=== PATIENT | female | born 1980 | race African-American/Black ===

== ENCOUNTER 2017-01-08 22:41 | Emergency (ER) | payer MEDICARE, MEDICAID ==
[~2017-01-08] VITALS: Ht 167.6 cm; Wt 114.0 kg
[~2017-01-08 22:41] MED LIST: ARIP2TAB9 PO
[2017-01-09 00:59] LABS: CLARITY URINE CLOUDY (CLEAR); COLOR URINE YELLOW (YELLOW); GLUCOSE URINE NEGATIVE (NEGATIVE); KETONES URINE NEGATIVE (NEGATIVE); LEUKOCYTE ESTERASE URINE NEGATIVE (NEGATIVE); NITRITE URINE NEGATIVE (NEGATIVE); OCCULT BLOOD URINE NEGATIVE (NEGATIVE); PH URINE 6.5 (4.5-8.0); PROTEIN URINE NEGATIVE (NEGATIVE); SPECIFIC GRAVITY URINE 1.031 (1.005-1.030)
[2017-01-09] MEDS ORDERED: DIPHENHYDRAMINE 50MG CAPSULE PO ONE (01:00)
[2017-01-09] MEDS ORDERED: LORAZEPAM 1MG TABLET PO ONE (01:00)
[2017-01-09 01:04] LABS: BASOPHILS % 1.2 % (0.0-2.0); EOSINOPHILS % 3.4 % (0.0-5.0); HEMATOCRIT. 37.6 % (36.0-48.0); LYMPHOCYTES % 35.6 % (20.0-50.0); MEAN CORPUSCULAR VOLUME 84.3 fL (81.0-99.0); MEAN PLATELET VOLUME 7.9 fl (7.4-10.4); MONOCYTES % 7.3 % (2.0-8.0); NEUTROPHILS % 52.5 % (40.0-76.0); PLATELET 276 x1000/uL (130-400); RED BLOOD CELL COUNT 4.45 mill/uL (4.2-5.4); RED CELL DISTRIBUTION WIDTH 14.7 % (11.6-14.6); WHITE BLOOD COUNT 6.6 x1000/uL (4.5-11.0)
[2017-01-09 01:08] LABS: CHLORIDE 108 mEq/L (98-107); INDEX HEMOLYSI 1 (1-3); INDEX ICTERIC 1 (1-4); INDEX LIPEMIC 1 (1-3)
[2017-01-09 01:14] LABS: *AMPHETAMINES SCREEN URINE NEGATIVE (NEGATIVE); *BARBITURATES SCREEN URINE NEGATIVE (NEGATIVE); *BENZODIAZEPINES SCREEN URINE NEGATIVE (NEGATIVE); *COCAINE SCREEN URINE NEGATIVE (NEGATIVE); CANNABINOID URINE SCREEN NEGATIVE (NEGATIVE); ECSTASY MDMA SCREEN URINE NEGATIVE (NEGATIVE); METHADONE URINE SCREEN NEGATIVE (NEGATIVE); OPIATES URINE SCREEN NEGATIVE (NEGATIVE); PHENCYCLIDINE URINE SCREEN NEGATIVE (NEGATIVE)
[2017-01-09 01:18] LABS: ACETAMINOPHEN < 2 ug/mL (10-30); ALANINE AMINOTRANSFERASE 23 IU/L (13-61); ALBUMIN 3.3 g/dL (3.4-5.0); ANION GAP 13; CALCIUM 8.5 mg/dL (8.5-10.1); CARBON DIOXIDE 26 mEq/L (21-32); ETHANOL BLOOD < 10 mg/dL; UREA NITROGEN BLOOD 13 mg/dL (7-21); eGFR > 60 mL/min (>60)
[2017-01-09 02:04] LABS: SQUAMOUS EPITHELIAL CELL URINE 2+ /lpf (RARE/1+); WBC URINE 0-2 /hpf (0-2)
[2017-01-09 02:05] LABS: RBC URINE 0-2 /hpf (0-2)
[2017-01-09 02:06] LABS: BACTERIA URINE TRACE
[2017-01-09 11:44] VITALS: BP 128/77
[2017-01-09] MEDS ORDERED: LORAZEPAM 2MG/ML CPJ IM ONE (12:45)
== END 2017-01-09 14:02 | disposition home or self-care (01) ==
LOC: ER 22:58
DX: F31.9 Bipolar disorder, unspecified (principal); R45.851 Suicidal ideations; F41.9 Anxiety disorder, unspecified; L97.929 Non-pressure chronic ulcer of unspecified part of left lower leg with unspecified severity
CPT/HCPCS: 36415; 80053; 80305; 80307; 80329; 81001; 81025; 85025; 99285; G0482; J2060; Q0163

== ENCOUNTER 2017-03-08 02:19 | Emergency (ER) | payer MEDICARE, MEDICAID ==
[~2017-03-08] VITALS: Ht 167.6 cm; Wt 107.0 kg
[2017-03-08 06:51] LABS: BASOPHILS % 0.7 % (0.0-2.0); EOSINOPHILS % 1.8 % (0.0-5.0); HEMOGLOBIN. 12.9 g/dL (12.0-16.0); LYMPHOCYTES % 24.7 % (20.0-50.0); MEAN CORPUSCULAR HGB CONC 32.4 g/dL (31.0-37.0); MEAN CORPUSCULAR VOLUME 83.3 fL (81.0-99.0); MONOCYTES % 6.7 % (2.0-8.0); NEUTROPHILS % 66.1 % (40.0-76.0); PLATELET 291 x1000/uL (130-400); RED CELL DISTRIBUTION WIDTH 14.2 % (11.6-14.6); WHITE BLOOD COUNT 7.9 x1000/uL (4.5-11.0)
[2017-03-08 06:54] LABS: CHLORIDE 109 mEq/L (98-107); INDEX HEMOLYSI 1 (1-3); INDEX ICTERIC 1 (1-4); INDEX LIPEMIC 1 (1-3)
[2017-03-08 07:03] LABS: ACETAMINOPHEN < 2 ug/mL (10-30); ALANINE AMINOTRANSFERASE 24 IU/L (13-61); ALBUMIN 3.3 g/dL (3.4-5.0); ANION GAP 12; CALCIUM 8.3 mg/dL (8.5-10.1); CARBON DIOXIDE 25 mEq/L (21-32); ETHANOL BLOOD < 10 mg/dL; UREA NITROGEN BLOOD 9 mg/dL (7-21); eGFR > 60 mL/min (>60)
[2017-03-08 10:17] LABS: CLARITY URINE TURBID (CLEAR); COLOR URINE DARK YELLOW (YELLOW); GLUCOSE URINE NEGATIVE (NEGATIVE); KETONES URINE TRACE (NEGATIVE); LEUKOCYTE ESTERASE URINE 2+ (NEGATIVE); NITRITE URINE NEGATIVE (NEGATIVE); OCCULT BLOOD URINE NEGATIVE (NEGATIVE); PH URINE 5.5 (4.5-8.0); PROTEIN URINE TRACE (NEGATIVE); SPECIFIC GRAVITY URINE 1.036 (1.005-1.030); UROBILINOGEN URINE 0.2 E.U./dL (0.2-1.0)
[2017-03-08 10:32] LABS: RBC URINE NONE SEEN /hpf (0-2); WBC URINE 0-2 /hpf (0-2)
[2017-03-08 10:33] LABS: AMORPHOUS SEDIMENT URINE 3+ /lpf; BACTERIA URINE 1+; CALCIUM OXALATE CRYSTALS URINE 2+ /lpf; SQUAMOUS EPITHELIAL CELL URINE RARE /lpf (RARE/1+)
[2017-03-08 10:43] LABS: *AMPHETAMINES SCREEN URINE NEGATIVE (NEGATIVE); *BARBITURATES SCREEN URINE NEGATIVE (NEGATIVE); *BENZODIAZEPINES SCREEN URINE NEGATIVE (NEGATIVE); *COCAINE SCREEN URINE NEGATIVE (NEGATIVE); ECSTASY MDMA SCREEN URINE NEGATIVE (NEGATIVE); METHADONE URINE SCREEN NEGATIVE (NEGATIVE); OPIATES URINE SCREEN NEGATIVE (NEGATIVE); PHENCYCLIDINE URINE SCREEN NEGATIVE (NEGATIVE)
[2017-03-08 10:59] LABS: CANNABINOID URINE SCREEN PRESUMTIVE POSITIVE (NEGATIVE)
[2017-03-08] MEDS ORDERED: ARIPIPRAZOLE 10MG TABLET PO ONE (12:15)
[2017-03-08 13:23] VITALS: BP 128/76
[2017-03-08] MEDS ORDERED: LORAZEPAM 1MG TABLET PO ONE (14:15)
== END 2017-03-08 17:56 | disposition home or self-care (01) ==
LOC: ER 02:22
DX: F25.0 Schizoaffective disorder, bipolar type (principal); N39.0 Urinary tract infection, site not specified; R03.0 Elevated blood-pressure reading, without diagnosis of hypertension; Z59.0 Homelessness
CPT/HCPCS: 36415; 80053; 80305; 80307; 80329; 81001; 81025; 85025; 99284; G0482

== ENCOUNTER 2017-10-12 00:40 | Emergency (ER) | payer MEDICARE, MEDICAID ==
[~2017-10-12] VITALS: Ht 167.6 cm; Wt 113.0 kg
[~2017-10-12 00:40] MED LIST changes: +ARIP2TAB3 PO; -ARIP2TAB9 PO
[2017-10-12 07:33] LABS: CLARITY URINE CLOUDY (CLEAR); COLOR URINE YELLOW (YELLOW); KETONES URINE NEGATIVE (NEGATIVE); LEUKOCYTE ESTERASE URINE 1+ (NEGATIVE); NITRITE URINE NEGATIVE (NEGATIVE); OCCULT BLOOD URINE NEGATIVE (NEGATIVE); PH URINE 5.5 (4.5-8.0); PROTEIN URINE TRACE (NEGATIVE); UROBILINOGEN URINE 0.2 E.U./dL (0.2-1.0)
[2017-10-12 07:34] LABS: CARBON DIOXIDE 30 mEq/L (21-32); CHLORIDE 107 mEq/L (98-107); ETHANOL BLOOD < 10 mg/dL
[2017-10-12 07:36] LABS: BASOPHILS % 0.9 % (0.0-2.0); EOSINOPHILS % 4.6 % (0.0-5.0); HEMATOCRIT. 40.9 % (36.0-48.0); LYMPHOCYTES % 47.6 % (20.0-50.0); MEAN CORPUSCULAR VOLUME 84.7 fL (81.0-99.0); MEAN PLATELET VOLUME 8.3 fl (7.4-10.4); MONOCYTES % 8.1 % (2.0-8.0); NEUTROPHILS % 38.8 % (40.0-76.0); PLATELET 269 x1000/uL (130-400); RED BLOOD CELL COUNT 4.83 mill/uL (4.2-5.4); RED CELL DISTRIBUTION WIDTH 13.3 % (11.6-14.6)
[2017-10-12 08:10] LABS: *AMPHETAMINES SCREEN URINE NEGATIVE (NEGATIVE); *BARBITURATES SCREEN URINE NEGATIVE (NEGATIVE); *COCAINE SCREEN URINE NEGATIVE (NEGATIVE); METHADONE URINE SCREEN NEGATIVE (NEGATIVE); OPIATES URINE SCREEN NEGATIVE (NEGATIVE); PHENCYCLIDINE URINE SCREEN NEGATIVE (NEGATIVE)
[2017-10-12 08:15] LABS: *BENZODIAZEPINES SCREEN URINE PRESUMTIVE POSITIVE (NEGATIVE); CANNABINOID URINE SCREEN PRESUMTIVE POSITIVE (NEGATIVE)
[2017-10-12 13:07] VITALS: BP 138/82
== END 2017-10-12 13:57 | disposition home or self-care (01) ==
LOC: ER 00:40
DX: S00.83XA Contusion of other part of head, initial encounter (principal); F25.9 Schizoaffective disorder, unspecified; F31.9 Bipolar disorder, unspecified; R44.0 Auditory hallucinations; F17.210 Nicotine dependence, cigarettes, uncomplicated; Z59.0 Homelessness; F12.10 Cannabis abuse, uncomplicated; W01.0XXA Fall on same level from slipping, tripping and stumbling without subsequent striking against object, initial encounter; Y93.89 Activity, other specified; Y92.488 Other paved roadways as the place of occurrence of the external cause
CPT/HCPCS: 36415; 80053; 80305; 80307; 80329; 81001; 81025; 85025; 99284; G0482

== ENCOUNTER 2018-05-22 18:37 | Emergency (ER) | payer MEDICARE, MEDICAID ==
[~2018-05-22] VITALS: Ht 165.1 cm; Wt 114.0 kg
[2018-05-22 22:56] LABS: HEMATOCRIT. 34.3 % (36.0-48.0); HEMOGLOBIN. 11.3 g/dL (12.0-16.0); MEAN CORPUSCULAR HEMOGLOBIN 26.7 pg (28.0-32.0); MEAN CORPUSCULAR VOLUME 81.4 fL (81.0-99.0); MEAN PLATELET VOLUME 8.2 fl (7.4-10.4); PLATELET 418 x1000/uL (130-400); RED BLOOD CELL COUNT 4.21 mill/uL (4.2-5.4); RED CELL DISTRIBUTION WIDTH 13.6 % (11.6-14.6)
[2018-05-22 22:59] LABS: CHLORIDE 106 mEq/L (98-107)
[2018-05-22 23:04] LABS: ETHANOL BLOOD < 10 mg/dL
[2018-05-22 23:20] LABS: PLATELET ESTIMATE INCREASED
[2018-05-23 01:18] LABS: CLARITY URINE TURBID (CLEAR); COLOR URINE DARK YELLOW (YELLOW); KETONES URINE TRACE (NEGATIVE); LEUKOCYTE ESTERASE URINE 2+ (NEGATIVE); NITRITE URINE NEGATIVE (NEGATIVE); OCCULT BLOOD URINE NEGATIVE (NEGATIVE); PROTEIN URINE 1+ (NEGATIVE); SPECIFIC GRAVITY URINE 1.027 (1.005-1.030)
[2018-05-23] MEDS ORDERED: NITROFURANTOIN 100MG M/M CAPSULE PO ONE (01:30)
[2018-05-23 01:59] LABS: *AMPHETAMINES SCREEN URINE NEGATIVE (NEGATIVE); *BARBITURATES SCREEN URINE NEGATIVE (NEGATIVE); *BENZODIAZEPINES SCREEN URINE NEGATIVE (NEGATIVE); *COCAINE SCREEN URINE NEGATIVE (NEGATIVE); METHADONE URINE SCREEN NEGATIVE (NEGATIVE); OPIATES URINE SCREEN NEGATIVE (NEGATIVE); PHENCYCLIDINE URINE SCREEN NEGATIVE (NEGATIVE)
[2018-05-23 02:00] LABS: CANNABINOID URINE SCREEN NEGATIVE (NEGATIVE)
[2018-05-23 06:50] VITALS: BP 118/72
== END 2018-05-23 07:04 | disposition home or self-care (01) ==
LOC: ER 18:37
DX: F31.9 Bipolar disorder, unspecified (principal); Z59.0 Homelessness; E66.9 Obesity, unspecified; Z68.41 Body mass index [BMI] 40.0-44.9, adult; Z79.899 Other long term (current) drug therapy
CPT/HCPCS: 36415; 80053; 80305; 80307; 80329; 81003; 81025; 85025; 87086; 93005; 99285; G0482

== ENCOUNTER 2018-08-10 17:46 | Emergency (ER) | payer OTHER, MEDICAID ==
[~2018-08-10] VITALS: Ht 172.7 cm; Wt 122.0 kg
[2018-08-10 19:14] LABS: BASOPHILS % 1.1 % (0.0-2.0); EOSINOPHILS % 2.8 % (0.0-5.0); HEMOGLOBIN. 12.3 g/dL (12.0-16.0); LYMPHOCYTES % 38.4 % (20.0-50.0); MEAN CORPUSCULAR HEMOGLOBIN 26.9 pg (28.0-32.0); MEAN CORPUSCULAR VOLUME 83.2 fL (81.0-99.0); MEAN PLATELET VOLUME 8.3 fl (7.4-10.4); MONOCYTES % 6.1 % (2.0-8.0); NEUTROPHILS % 51.6 % (40.0-76.0); PLATELET 340 x1000/uL (130-400); RED BLOOD CELL COUNT 4.57 mill/uL (4.2-5.4); RED CELL DISTRIBUTION WIDTH 14.9 % (11.6-14.6)
[2018-08-10 19:19] LABS: CHLORIDE 107 mEq/L (98-107)
[2018-08-10 19:23] LABS: ETHANOL BLOOD < 10 mg/dL
[2018-08-10 19:48] LABS: *AMPHETAMINES SCREEN URINE NEGATIVE (NEGATIVE); *BARBITURATES SCREEN URINE NEGATIVE (NEGATIVE); *BENZODIAZEPINES SCREEN URINE NEGATIVE (NEGATIVE); *COCAINE SCREEN URINE NEGATIVE (NEGATIVE); CANNABINOID URINE SCREEN NEGATIVE (NEGATIVE); METHADONE URINE SCREEN NEGATIVE (NEGATIVE); OPIATES URINE SCREEN NEGATIVE (NEGATIVE); PHENCYCLIDINE URINE SCREEN NEGATIVE (NEGATIVE)
[2018-08-10] MEDS ORDERED: BACITRACIN ZINC OINT UDPKT TOP ONE (20:30)
[2018-08-11 08:58] VITALS: BP 135/82
== END 2018-08-11 09:07 | disposition home or self-care (01) ==
LOC: ER 18:01
DX: R44.0 Auditory hallucinations (principal); L97.319 Non-pressure chronic ulcer of right ankle with unspecified severity; M25.571 Pain in right ankle and joints of right foot; F31.9 Bipolar disorder, unspecified; Z59.0 Homelessness
CPT/HCPCS: 36415; 73610; 80053; 80305; 81025; 85025; 85651; 86140; 99285; G0482

== ENCOUNTER 2019-08-22 22:51 | Emergency (ER) | payer MEDICAID, MEDICARE, OTHER ==
[~2019-08-22] VITALS: Ht 180.3 cm; Wt 113.0 kg
[2019-08-23] MEDS ORDERED: HYDROCODONE/ACETAMINOPHEN 5/325MG TABLET PO ONE (01:45)
[2019-08-23 04:15] VITALS: BP 143/89
== END 2019-08-23 07:21 | disposition left against medical advice (07) ==
LOC: ER 23:12
DX: L97.219 Non-pressure chronic ulcer of right calf with unspecified severity (principal); F20.9 Schizophrenia, unspecified; F17.210 Nicotine dependence, cigarettes, uncomplicated; Z71.6 Tobacco abuse counseling; Z59.0 Homelessness
CPT/HCPCS: 99283; 99406

== ENCOUNTER 2019-08-28 21:50 | Emergency (ER) | payer MEDICARE, MEDICAID ==
[~2019-08-28] VITALS: Ht 162.6 cm; Wt 114.0 kg
[2019-08-28] MEDS ORDERED: FAMOTIDINE 20MG TABLET PO ONE (23:45)
[2019-08-29 03:00] VITALS: BP 134/87
== END 2019-08-29 07:11 | disposition home or self-care (01) ==
LOC: ER 21:50
DX: S09.8XXA Other specified injuries of head, initial encounter (principal); L97.219 Non-pressure chronic ulcer of right calf with unspecified severity; E11.9 Type 2 diabetes mellitus without complications; W01.0XXA Fall on same level from slipping, tripping and stumbling without subsequent striking against object, initial encounter; Y93.89 Activity, other specified; Y92.488 Other paved roadways as the place of occurrence of the external cause
CPT/HCPCS: 99283

== ENCOUNTER 2019-09-11 19:17 | Emergency (ER) | payer MEDICARE, MEDICAID ==
[~2019-09-11] VITALS: Ht 172.7 cm; Wt 104.5 kg
[2019-09-11] MEDS ORDERED: HYDROCODONE/ACETAMINOPHEN 5/325MG TABLET PO STA (21:11)
[2019-09-11] MEDS ORDERED: BACITRACIN ZINC OINT UDPKT TOP ONE (21:15)
[2019-09-11] MEDS ORDERED: CEFTRIAXONE SODIUM 1 G/VIAL IM ONE (22:00)
[2019-09-11] MEDS ORDERED: LIDOCAINE HCL/PF 1% 10 MG/ML 5ML VIAL IJ ONE (22:00)
[2019-09-11] MEDS ORDERED: SULFAMETHOXAZOLE/TRIMETHOPRIM 800/160MG TABLET PO ONE (22:00)
[2019-09-11 23:01] LABS: CLARITY URINE CLEAR (CLEAR); COLOR URINE YELLOW (YELLOW); KETONES URINE TRACE (NEGATIVE); LEUKOCYTE ESTERASE URINE 1+ (NEGATIVE); NITRITE URINE NEGATIVE (NEGATIVE); OCCULT BLOOD URINE NEGATIVE (NEGATIVE); PH URINE 6.5 (4.5-8.0); PROTEIN URINE NEGATIVE (NEGATIVE); SPECIFIC GRAVITY URINE 1.027 (1.005-1.030); UROBILINOGEN URINE 0.2 E.U./dL (0.2-1.0)
[2019-09-11 23:42] LABS: *AMPHETAMINES SCREEN URINE NEGATIVE (NEGATIVE); *BARBITURATES SCREEN URINE NEGATIVE (NEGATIVE); *BENZODIAZEPINES SCREEN URINE NEGATIVE (NEGATIVE); *COCAINE SCREEN URINE NEGATIVE (NEGATIVE)
[2019-09-11 23:43] LABS: CANNABINOID URINE SCREEN NEGATIVE (NEGATIVE); METHADONE URINE SCREEN NEGATIVE (NEGATIVE); OPIATES URINE SCREEN NEGATIVE (NEGATIVE); PHENCYCLIDINE URINE SCREEN NEGATIVE (NEGATIVE)
[2019-09-12 07:15] VITALS: BP 149/79
== END 2019-09-12 07:16 | disposition home or self-care (01) ==
LOC: ER 19:17
DX: S81.801A Unspecified open wound, right lower leg, initial encounter (principal); E11.9 Type 2 diabetes mellitus without complications; F19.10 Other psychoactive substance abuse, uncomplicated; Z59.0 Homelessness; X58.XXXA Exposure to other specified factors, initial encounter; Y93.89 Activity, other specified; Y92.89 Other specified places as the place of occurrence of the external cause; Y99.8 Other external cause status
CPT/HCPCS: 80305; 81003; 81025; 87086; 96372; 99284; J0696; J3490

== ENCOUNTER 2019-09-13 16:47 | Emergency (ER) | payer MEDICARE, MEDICAID ==
[~2019-09-13] VITALS: Ht 167.6 cm; Wt 90.0 kg
[2019-09-13] MEDS ORDERED: VISCOUS LIDOCAINE 2% 15 ML UDC PO ONE (21:15)
[2019-09-13] MEDS ORDERED: MAGNESIUM/ALUMINUM HYDROXIDE/SIMETHICONE 30ML UDC PO ONE (21:15)
[2019-09-13 21:21] LABS: EOSINOPHILS % 6.5 % (0.0-5.0); HEMATOCRIT. 35.4 % (36.0-48.0); HEMOGLOBIN. 11.6 g/dL (12.0-16.0); LYMPHOCYTES % 46.6 % (20.0-50.0); MEAN CORPUSCULAR HEMOGLOBIN 26.9 pg (28.0-32.0); MEAN CORPUSCULAR VOLUME 81.9 fL (81.0-99.0); MEAN PLATELET VOLUME 7.9 fl (7.4-10.4); NEUTROPHILS % 36.9 % (40.0-76.0); PLATELET 290 x1000/uL (130-400); RED BLOOD CELL COUNT 4.32 mill/uL (4.2-5.4); RED CELL DISTRIBUTION WIDTH 14.9 % (11.6-14.6)
[2019-09-13 21:26] LABS: CHLORIDE 113 mEq/L (98-107)
[2019-09-13] MEDS ORDERED: KETOROLAC 30MG/ML VIAL IV ONE (22:15)
[2019-09-14 00:12] VITALS: BP 136/78
== END 2019-09-14 00:09 | disposition home or self-care (01) ==
LOC: ER 16:47
DX: L97.929 Non-pressure chronic ulcer of unspecified part of left lower leg with unspecified severity (principal); R07.9 Chest pain, unspecified; I10 Essential (primary) hypertension
CPT/HCPCS: 36415; 71045; 83880; 84484; 93005; 99284

== ENCOUNTER 2019-09-17 23:58 | Emergency (ER) | payer MEDICARE, MEDICAID ==
[~2019-09-17] VITALS: Ht 172.7 cm; Wt 100.0 kg
[2019-09-18] MEDS ORDERED: ACETAMINOPHEN 325MG TABLET PO ONE (00:30)
[2019-09-18] MEDS ORDERED: LORAZEPAM 1MG TABLET PO ONE (00:30)
[2019-09-18] MEDS ORDERED: IBUPROFEN 600MG TABLET PO ONE (00:45)
[2019-09-18 08:30] VITALS: BP 120/73
== END 2019-09-18 08:40 | disposition left against medical advice (07) ==
LOC: ER 23:58
DX: S80.921A Unspecified superficial injury of right lower leg, initial encounter (principal); Z59.0 Homelessness; E11.9 Type 2 diabetes mellitus without complications; F20.9 Schizophrenia, unspecified; Z79.899 Other long term (current) drug therapy; X58.XXXA Exposure to other specified factors, initial encounter; Y93.89 Activity, other specified; Y92.89 Other specified places as the place of occurrence of the external cause; Y99.8 Other external cause status
CPT/HCPCS: 99284

== ENCOUNTER 2019-11-24 21:19 | Inpatient (IN) | payer MEDICARE, MEDICAID ==
[~2019-11-24] VITALS: Ht 172.7 cm; Wt 113.4 kg
[2019-11-25] MEDS ORDERED: VANCOMYCIN 1 G PREMIX 200 ML IV STA (00:15)
[2019-11-25 01:02] LABS: BASOPHILS % 1.1 % (0.0-2.0); EOSINOPHILS % 2.6 % (0.0-5.0); HEMATOCRIT. 38.2 % (36.0-48.0); HEMOGLOBIN. 12.3 g/dL (12.0-16.0); LYMPHOCYTES % 37.9 % (20.0-50.0); MEAN CORPUSCULAR HEMOGLOBIN 26.1 pg (28.0-32.0); MEAN PLATELET VOLUME 8.2 fl (7.4-10.4); MONOCYTES % 8.2 % (2.0-8.0); NEUTROPHILS % 50.2 % (40.0-76.0); PLATELET 325 x1000/uL (130-400); RED BLOOD CELL COUNT 4.71 mill/uL (4.2-5.4); RED CELL DISTRIBUTION WIDTH 14.6 % (11.6-14.6)
[2019-11-25 01:03] LABS: CHLORIDE 110 mEq/L (98-107)
[2019-11-25] MEDS ORDERED: HYDROCODONE/ACETAMINOPHEN 5/325MG TABLET PO ONE (01:30)
[2019-11-25 09:00] VITALS: BP 144/97
[2019-11-25] MEDS ORDERED: DIPHENHYDRAMINE 50MG/ML VIAL IV PRN (09:00)
[2019-11-25] MEDS ORDERED: ONDANSETRON HCL 4MG/2ML INJ IV PRN (09:00)
[2019-11-25] MEDS ORDERED: MORPHINE SULFATE 2 MG/ML CPJ (NOT FOR IM USE) IV PRN (09:00)
[2019-11-25] MEDS ORDERED: IPRATROPIUM/ALBUTEROL 0.5-3(2.5)MG/3ML NEB HHN PRN (09:00)
[2019-11-25] MEDS ORDERED: ACETAMINOPHEN 325MG TABLET PO PRN (09:00)
[2019-11-25] MEDS ORDERED: CLONIDINE 0.1MG TABLET PO PRN (09:00)
[2019-11-25 09:17] LABS: PHOSPHORUS 4.5 mg/dL (2.5-4.9)
[2019-11-25] MEDS ORDERED: QUET400T11 MT (11:33)
[2019-11-25] MEDS ORDERED: LORA2TAB95 PO (11:38)
[2019-11-25] MEDS ORDERED: IBUP-516 PO (11:39)
[2019-11-25] MEDS ORDERED: CITA20TA19 PO (11:41)
[2019-11-25] MEDS ORDERED: VANCOMYCIN 1 G PREMIX 200 ML IV SCH (13:00)
[2019-11-25] MEDS ORDERED: SODIUM HYPOCHLORITE 0.125% 473ML SOLUTION TOP SCH (14:00)
[2019-11-25 15:58] VITALS: BP 114/69
== END 2019-11-25 17:22 | disposition left against medical advice (07) | DRG 638 ==
LOC: ER 21:19 → 6EST 11-25 07:04 → ENRESERV 11-25 07:30
PROVIDERS: ADMIT Internal Medicine; ATTEND Internal Medicine
DX: E11.69 Type 2 diabetes mellitus with other specified complication (principal); L97.919 Non-pressure chronic ulcer of unspecified part of right lower leg with unspecified severity; M86.8X6 Other osteomyelitis, lower leg; E11.622 Type 2 diabetes mellitus with other skin ulcer; F25.9 Schizoaffective disorder, unspecified; F31.9 Bipolar disorder, unspecified; F41.9 Anxiety disorder, unspecified; L08.89 Other specified local infections of the skin and subcutaneous tissue; E66.01 Morbid (severe) obesity due to excess calories; F17.210 Nicotine dependence, cigarettes, uncomplicated; Z79.899 Other long term (current) drug therapy; Z71.3 Dietary counseling and surveillance; Z91.19 Patient's noncompliance with other medical treatment and regimen; Z59.0 Homelessness
CPT/HCPCS: 36415; 73590; 80048; 83735; 84100; 85025; 85651; 86140; 93970; 96365; 99285; J2270; J3370

== ENCOUNTER 2020-01-27 23:35 | Emergency (ER) | payer MEDICARE, MEDICAID ==
[~2020-01-27] VITALS: Ht 175.3 cm; Wt 113.0 kg
[~2020-01-27 23:35] MED LIST changes: +CITA20TA19 PO; +IBUP-516 PO; +LORA2TAB95 PO; +QUET400T11 MT
[2020-01-28 00:48] LABS: BASOPHILS % 1.2 % (0.0-2.0); EOSINOPHILS % 3.6 % (0.0-5.0); HEMATOCRIT. 40.5 % (36.0-48.0); HEMOGLOBIN. 13.2 g/dL (12.0-16.0); MEAN CORPUSCULAR HEMOGLOBIN 26.7 pg (28.0-32.0); MEAN CORPUSCULAR VOLUME 81.8 fL (81.0-99.0); MEAN PLATELET VOLUME 8.1 fl (7.4-10.4); MONOCYTES % 4.9 % (2.0-8.0); NEUTROPHILS % 50.3 % (40.0-76.0); PLATELET 323 x1000/uL (130-400); RED BLOOD CELL COUNT 4.95 mill/uL (4.2-5.4); RED CELL DISTRIBUTION WIDTH 15.5 % (11.6-14.6)
[2020-01-28 00:50] LABS: CLARITY URINE CLEAR (CLEAR); COLOR URINE YELLOW (YELLOW); KETONES URINE TRACE (NEGATIVE); LEUKOCYTE ESTERASE URINE TRACE (NEGATIVE); NITRITE URINE NEGATIVE (NEGATIVE); OCCULT BLOOD URINE NEGATIVE (NEGATIVE); PROTEIN URINE NEGATIVE (NEGATIVE); SPECIFIC GRAVITY URINE 1.031 (1.005-1.030); UROBILINOGEN URINE 0.2 E.U./dL (0.2-1.0)
[2020-01-28 00:52] LABS: CHLORIDE 108 mEq/L (98-107)
[2020-01-28 00:57] LABS: ETHANOL BLOOD < 10 mg/dL
[2020-01-28 01:06] LABS: *AMPHETAMINES SCREEN URINE NEGATIVE (NEGATIVE); *BARBITURATES SCREEN URINE NEGATIVE (NEGATIVE); *BENZODIAZEPINES SCREEN URINE NEGATIVE (NEGATIVE); *COCAINE SCREEN URINE NEGATIVE (NEGATIVE); CANNABINOID URINE SCREEN NEGATIVE (NEGATIVE); METHADONE URINE SCREEN NEGATIVE (NEGATIVE); OPIATES URINE SCREEN NEGATIVE (NEGATIVE); PHENCYCLIDINE URINE SCREEN NEGATIVE (NEGATIVE)
[2020-01-28] MEDS ORDERED: ACETAMINOPHEN 500MG TABLET PO ONE (03:00)
[2020-01-28] MEDS ORDERED: NITROFURANTOIN 100MG M/M CAPSULE PO SCH (04:15)
[2020-01-28] MEDS ORDERED: CEPHALEXIN 250MG CAPSULE PO SCH (05:45)
[2020-01-28 13:39] VITALS: BP 151/74
== END 2020-01-28 13:59 | disposition home or self-care (01) ==
LOC: ER 23:35
DX: O24.911 Unspecified diabetes mellitus in pregnancy, first trimester (principal); O23.41 Unspecified infection of urinary tract in pregnancy, first trimester; O26.891 Other specified pregnancy related conditions, first trimester; L97.919 Non-pressure chronic ulcer of unspecified part of right lower leg with unspecified severity; F99 Mental disorder, not otherwise specified; Z3A.01 Less than 8 weeks gestation of pregnancy
CPT/HCPCS: 36415; 80053; 80305; 80307; 80320; 80329; 81003; 82962; 83605; 84145; 85025; 99285; G0480

== ENCOUNTER 2020-03-01 12:22 | Emergency (ER) | payer MEDICARE, MEDICAID ==
[~2020-03-01] VITALS: Ht 172.7 cm; Wt 100.0 kg
[2020-03-01 16:00] LABS: BASOPHILS % 0.9 % (0.0-2.0); EOSINOPHILS % 3.4 % (0.0-5.0); HEMATOCRIT. 37.7 % (36.0-48.0); HEMOGLOBIN. 12.5 g/dL (12.0-16.0); LYMPHOCYTES % 22.7 % (20.0-50.0); MEAN CORPUSCULAR HEMOGLOBIN 26.8 pg (28.0-32.0); MEAN CORPUSCULAR VOLUME 81.2 fL (81.0-99.0); MEAN PLATELET VOLUME 8.2 fl (7.4-10.4); MONOCYTES % 5.7 % (2.0-8.0); NEUTROPHILS % 67.3 % (40.0-76.0); PLATELET 301 x1000/uL (130-400); RED BLOOD CELL COUNT 4.64 mill/uL (4.2-5.4); RED CELL DISTRIBUTION WIDTH 15.1 % (11.6-14.6)
[2020-03-01 16:07] LABS: CHLORIDE 103 mEq/L (98-107)
[2020-03-01 16:09] LABS: HCG SCREEN POSITIVE
[2020-03-01 16:16] LABS: CLARITY URINE CLOUDY (CLEAR); COLOR URINE ORANGE (YELLOW); KETONES URINE NEGATIVE (NEGATIVE); LEUKOCYTE ESTERASE URINE TRACE (NEGATIVE); NITRITE URINE NEGATIVE (NEGATIVE); OCCULT BLOOD URINE 3+ (NEGATIVE); PH URINE 5.5 (4.5-8.0); PROTEIN URINE NEGATIVE (NEGATIVE); UROBILINOGEN URINE 0.2 E.U./dL (0.2-1.0)
[2020-03-01 16:26] LABS: *AMPHETAMINES SCREEN URINE NEGATIVE (NEGATIVE); *BARBITURATES SCREEN URINE NEGATIVE (NEGATIVE); *BENZODIAZEPINES SCREEN URINE NEGATIVE (NEGATIVE); *COCAINE SCREEN URINE NEGATIVE (NEGATIVE); METHADONE URINE SCREEN NEGATIVE (NEGATIVE)
[2020-03-01 16:27] LABS: CANNABINOID URINE SCREEN NEGATIVE (NEGATIVE); OPIATES URINE SCREEN NEGATIVE (NEGATIVE); PHENCYCLIDINE URINE SCREEN NEGATIVE (NEGATIVE)
[2020-03-01 16:32] LABS: B-HCG QUANTITATIVE 2741 mIU/mL (<3)
[2020-03-01] MEDS ORDERED: ONDANSETRON 4MG ODT PO ONE (17:00)
[2020-03-01 17:13] VITALS: BP 125/68
== END 2020-03-01 17:49 | disposition home or self-care (01) ==
LOC: ER 12:49
DX: O20.0 Threatened abortion (principal); O24.911 Unspecified diabetes mellitus in pregnancy, first trimester; O26.891 Other specified pregnancy related conditions, first trimester; F25.9 Schizoaffective disorder, unspecified; Z3A.01 Less than 8 weeks gestation of pregnancy
CPT/HCPCS: 36415; 76830; 76856; 80053; 80305; 81003; 84702; 84703; 85025; 86850; 86900; 99284

== ENCOUNTER 2020-05-05 09:50 | Inpatient (IN) | payer MEDICARE, MEDICAID ==
[~2020-05-05] VITALS: Ht 167.6 cm; Wt 117.9 kg
[2020-05-05 11:14] LABS: EOSINOPHILS % 3.1 % (0.0-5.0); HEMATOCRIT. 40.1 % (36.0-48.0); HEMOGLOBIN. 13.1 g/dL (12.0-16.0); LYMPHOCYTES % 16.3 % (20.0-50.0); MEAN CORPUSCULAR HEMOGLOBIN 26.3 pg (28.0-32.0); MEAN CORPUSCULAR VOLUME 80.7 fL (81.0-99.0); MEAN PLATELET VOLUME 8.4 fl (7.4-10.4); NEUTROPHILS % 71.6 % (40.0-76.0); PLATELET 356 x1000/uL (130-400); RED BLOOD CELL COUNT 4.97 mill/uL (4.2-5.4); RED CELL DISTRIBUTION WIDTH 14.9 % (11.6-14.6)
[2020-05-05 11:18] LABS: CHLORIDE 108 mEq/L (98-107)
[2020-05-05 11:22] LABS: HCG SCREEN NEGATIVE
[2020-05-05] MEDS ORDERED: PIPERACILLIN/TAZOBACTAM 3.375GM/50ML PREMIX IV ONE (11:45)
[2020-05-05] MEDS ORDERED: VANCOMYCIN 1 G PREMIX 200 ML IV SCH (11:45)
[2020-05-05] MEDS: QUETIAPINE FUMARATE 50MG TABLET PO SCH (11:56)
[2020-05-05] MEDS ORDERED: LORAZEPAM 1MG TABLET PO ONE (13:00)
[2020-05-05] MEDS ORDERED: HYDROCODONE/ACETAMINOPHEN 5/325MG TABLET PO PRN (16:45)
[2020-05-05] MEDS ORDERED: DOCUSATE SODIUM 100MG CAPSULE PO PRN (16:45)
[2020-05-05] MEDS ORDERED: ACETAMINOPHEN 325MG TABLET PO PRN ×2 (16:45)
[2020-05-05] MEDS ORDERED: LORAZEPAM 0.5MG TABLET PO PRN (16:45)
[2020-05-05] MEDS ORDERED: ONDANSETRON HCL 4MG/2ML INJ IV PRN (16:45)
[2020-05-05] MEDS ORDERED: CLONIDINE 0.1MG TABLET PO PRN (16:45)
[2020-05-05] MEDS ORDERED: IPRATROPIUM/ALBUTEROL 0.5-3(2.5)MG/3ML NEB HHN PRN (16:45)
[2020-05-05] MEDS: MORPHINE SULFATE 2 MG/ML CPJ (NOT FOR IM USE) IV PRN (17:27)
[2020-05-05] MEDS ORDERED: VANCOMYCIN 1500MG in DEXTROSE 5% WATER 250ML IV SCH (20:00)
[2020-05-05] MEDS ORDERED: PIPERACILLIN/TAZ 3.375G PREMIX 50 ML IV SCH (20:00)
[2020-05-05 21:50] VITALS: BP 144/83
[2020-05-06] MEDS ORDERED: VANCOMYCIN 1 G PREMIX 200 ML IV SCH (04:00)
[2020-05-06 06:49] LABS: BASOPHILS % 0.6 % (0.0-2.0); EOSINOPHILS % 2.2 % (0.0-5.0); HEMATOCRIT. 37.2 % (36.0-48.0); HEMOGLOBIN. 12.5 g/dL (12.0-16.0); LYMPHOCYTES % 20.9 % (20.0-50.0); MEAN CORPUSCULAR HEMOGLOBIN 26.8 pg (28.0-32.0); MONOCYTES % 11.5 % (2.0-8.0); NEUTROPHILS % 64.8 % (40.0-76.0); PLATELET 357 x1000/uL (130-400); RED BLOOD CELL COUNT 4.66 mill/uL (4.2-5.4); RED CELL DISTRIBUTION WIDTH 14.4 % (11.6-14.6)
[2020-05-06 07:17] LABS: CHLORIDE 107 mEq/L (98-107)
[2020-05-06 08:00] VITALS: BP 124/75
[2020-05-06] MEDS ORDERED: PIPERACILLIN/TAZOBACTAM 3.375 G in DEXT 5% WATER 100 ML IV SCH (08:00)
[2020-05-06] MEDS: QUETIAPINE FUMARATE 50MG TABLET PO SCH (09:00)
[2020-05-06] MEDS: MORPHINE SULFATE 2 MG/ML CPJ (NOT FOR IM USE) IV PRN (09:00)
[2020-05-06 12:00] VITALS: BP 126/82
[2020-05-06] MEDS ORDERED: HYDR-4001 MT (12:07)
[2020-05-06] MEDS ORDERED: AMOX-424 MT (12:07)
[2020-05-06] MEDS ORDERED: SULF1TAB48 MT (12:07)
[2020-05-06 12:17] VITALS: BP 124/75
[2020-05-06 16:00] VITALS: BP 128/86
[2020-05-06] MEDS ORDERED: VANCOMYCIN 1250MG in DEXTROSE 5% WATER 250ML IV SCH (18:00)
== END 2020-05-06 13:27 | disposition home or self-care (01) | DRG 593 ==
LOC: ER 10:23 → EDBEDREQTM 12:57 → ENRESERV 20:35 → 6EST 21:25
PROVIDERS: ADMIT Internal Medicine; ATTEND Internal Medicine
DX: L97.919 Non-pressure chronic ulcer of unspecified part of right lower leg with unspecified severity (principal); L03.90 Cellulitis, unspecified; Z68.41 Body mass index [BMI] 40.0-44.9, adult; F25.9 Schizoaffective disorder, unspecified; I10 Essential (primary) hypertension; E78.00 Pure hypercholesterolemia, unspecified; E11.9 Type 2 diabetes mellitus without complications; E66.01 Morbid (severe) obesity due to excess calories; F31.9 Bipolar disorder, unspecified; Z59.0 Homelessness; Z79.1 Long term (current) use of non-steroidal anti-inflammatories (NSAID); Z79.899 Other long term (current) drug therapy
CPT/HCPCS: 36415; 73590; 73610; 73620; 80048; 80053; 82962; 84145; 84703; 85025; 85651; 86140; 87070; 96365; 99285; J2270; J2543; J3370; J7060

== ENCOUNTER 2020-08-20 22:04 | Emergency (ER) | payer MEDICARE, MEDICAID ==
[~2020-08-20] VITALS: Ht 170.2 cm; Wt 108.0 kg
[~2020-08-20 22:04] MED LIST changes: +AMOX-424 MT; +HYDR-4001 MT; +SULF1TAB48 MT
[2020-08-20 22:12] VITALS: BP 145/86
== END 2020-08-21 00:46 | disposition home or self-care (01) ==
LOC: ER 22:04
DX: L97.518 Non-pressure chronic ulcer of other part of right foot with other specified severity (principal); F20.9 Schizophrenia, unspecified; E11.9 Type 2 diabetes mellitus without complications; E78.00 Pure hypercholesterolemia, unspecified; I10 Essential (primary) hypertension; Z79.899 Other long term (current) drug therapy
CPT/HCPCS: 82962; 99282; 99283

== ENCOUNTER 2020-09-11 18:04 | Emergency (ER) | payer MEDICARE, MEDICAID ==
[~2020-09-11] VITALS: Ht 165.1 cm; Wt 122.0 kg
[2020-09-11] MEDS ORDERED: PIPERACILLIN/TAZ 3.375G PREMIX 50 ML IV ONE (20:00)
[2020-09-11] MEDS ORDERED: VANCOMYCIN 1 G PREMIX 200 ML IV ONE (20:00)
[2020-09-11] MEDS ORDERED: SODIUM CHLORIDE 0.9% 1,000 ML IV ONE (20:00)
[2020-09-11 20:39] LABS: BASOPHILS % 1.5 % (0.0-2.0); EOSINOPHILS % 5.7 % (0.0-5.0); HEMATOCRIT. 33.6 % (36.0-48.0); LYMPHOCYTES % 37.3 % (20.0-50.0); MEAN CORPUSCULAR VOLUME 79.6 fL (81.0-99.0); MEAN PLATELET VOLUME 7.9 fl (7.4-10.4); MONOCYTES % 8.1 % (2.0-8.0); NEUTROPHILS % 47.4 % (40.0-76.0); PLATELET 299 x1000/uL (130-400); RED BLOOD CELL COUNT 4.22 mill/uL (4.2-5.4); RED CELL DISTRIBUTION WIDTH 15.7 % (11.6-14.6)
[2020-09-11 20:45] LABS: CHLORIDE 111 mEq/L (98-107)
[2020-09-12] MEDS ORDERED: KETOROLAC 15MG/ML VIAL IV PRN (02:30)
[2020-09-12 06:05] VITALS: BP 113/47
== END 2020-09-12 08:38 | disposition left against medical advice (07) ==
LOC: ER 18:04 → EDBEDREQTM 23:21 → EDBEDREQ 23:21 → EDBEDREQSVC 23:21 → CANRESERV 09-12 08:08 → ENRESERV 09-12 08:08 → ER 09-12 08:38 → CANBEDREQ 09-12 19:05
DX: E11.621 Type 2 diabetes mellitus with foot ulcer (principal); L97.519 Non-pressure chronic ulcer of other part of right foot with unspecified severity; D64.9 Anemia, unspecified; E87.2 Acidosis; F31.9 Bipolar disorder, unspecified; F20.9 Schizophrenia, unspecified
CPT/HCPCS: 36415; 71045; 80053; 82962; 83605; 85025; 87040; 96365; 96366; 96367; 96375; 99285; J1885; J2543; J3370; J7030

== ENCOUNTER 2020-09-14 21:09 | Emergency (ER) | payer MEDICARE, MEDICAID ==
[~2020-09-14] VITALS: Ht 167.6 cm; Wt 136.0 kg
[2020-09-14] MEDS ORDERED: IBUPROFEN 600MG TABLET PO STA (23:11)
[2020-09-14] MEDS ORDERED: ACETAMINOPHEN 325MG TABLET PO STA (23:11)
[2020-09-14] MEDS ORDERED: LIDOCAINE HCL 1% 20ML VIAL (Pyxis) INJ INFIL ONE (23:15)
[2020-09-14] MEDS ORDERED: CEFTRIAXONE SODIUM 1 G/VIAL IM ONE (23:15)
[2020-09-14] MEDS ORDERED: SULFAMETHOXAZOLE/TRIMETHOPRIM 800/160MG TABLET PO ONE (23:15)
[2020-09-15 00:21] LABS: BASOPHILS % 1.1 % (0.0-2.0); EOSINOPHILS % 4.6 % (0.0-5.0); HEMATOCRIT. 39.9 % (36.0-48.0); HEMOGLOBIN. 12.7 g/dL (12.0-16.0); LYMPHOCYTES % 40.8 % (20.0-50.0); MEAN CORPUSCULAR HEMOGLOBIN 25.4 pg (28.0-32.0); MEAN CORPUSCULAR VOLUME 79.9 fL (81.0-99.0); MONOCYTES % 4.5 % (2.0-8.0); PLATELET 354 x1000/uL (130-400); RED BLOOD CELL COUNT 4.99 mill/uL (4.2-5.4); RED CELL DISTRIBUTION WIDTH 15.7 % (11.6-14.6)
[2020-09-15 00:26] LABS: CHLORIDE 106 mEq/L (98-107)
[2020-09-15 00:30] LABS: HCG SCREEN NEGATIVE
[2020-09-15 00:33] LABS: ETHANOL BLOOD 43 mg/dL
[2020-09-15 00:43] LABS: CLARITY URINE CLOUDY (CLEAR); COLOR URINE YELLOW (YELLOW); KETONES URINE NEGATIVE (NEGATIVE); LEUKOCYTE ESTERASE URINE 2+ (NEGATIVE); NITRITE URINE NEGATIVE (NEGATIVE); OCCULT BLOOD URINE NEGATIVE (NEGATIVE); PROTEIN URINE NEGATIVE (NEGATIVE); SPECIFIC GRAVITY URINE 1.021 (1.005-1.030); UROBILINOGEN URINE 0.2 E.U./dL (0.2-1.0)
[2020-09-15 01:03] LABS: *AMPHETAMINES SCREEN URINE NEGATIVE (NEGATIVE); *BARBITURATES SCREEN URINE NEGATIVE (NEGATIVE); *BENZODIAZEPINES SCREEN URINE NEGATIVE (NEGATIVE); *COCAINE SCREEN URINE NEGATIVE (NEGATIVE)
[2020-09-15 01:04] LABS: CANNABINOID URINE SCREEN NEGATIVE (NEGATIVE); METHADONE URINE SCREEN NEGATIVE (NEGATIVE); OPIATES URINE SCREEN NEGATIVE (NEGATIVE); PHENCYCLIDINE URINE SCREEN NEGATIVE (NEGATIVE)
[2020-09-15 06:43] VITALS: BP 156/66
== END 2020-09-15 06:48 | disposition home or self-care (01) ==
LOC: ER 21:09
DX: L97.919 Non-pressure chronic ulcer of unspecified part of right lower leg with unspecified severity (principal); L08.9 Local infection of the skin and subcutaneous tissue, unspecified; E11.622 Type 2 diabetes mellitus with other skin ulcer; R44.0 Auditory hallucinations; R45.851 Suicidal ideations; N39.0 Urinary tract infection, site not specified
CPT/HCPCS: 36415; 80053; 80305; 80307; 80320; 80329; 81003; 81025; 84703; 85025; 93005; 96372; 99284; J0696; J3490; G0480

== ENCOUNTER 2020-09-23 20:50 | Emergency (ER) | payer MEDICARE, MEDICAID ==
[~2020-09-23] VITALS: Ht 172.7 cm; Wt 111.0 kg
[2020-09-24] MEDS ORDERED: ACETAMINOPHEN 325MG TABLET PO ONE (00:45)
[2020-09-24 02:00] VITALS: BP 144/82
[2020-09-24 02:07] LABS: BASOPHILS % 1.4 % (0.0-2.0); EOSINOPHILS % 3.3 % (0.0-5.0); HEMOGLOBIN. 12.3 g/dL (12.0-16.0); LYMPHOCYTES % 41.7 % (20.0-50.0); MEAN CORPUSCULAR HEMOGLOBIN 25.7 pg (28.0-32.0); MEAN PLATELET VOLUME 8.1 fl (7.4-10.4); MONOCYTES % 6.4 % (2.0-8.0); NEUTROPHILS % 47.2 % (40.0-76.0); PLATELET 358 x1000/uL (130-400); RED CELL DISTRIBUTION WIDTH 15.3 % (11.6-14.6)
[2020-09-24 02:09] LABS: CHLORIDE 108 mEq/L (98-107)
[2020-09-24 02:13] LABS: ETHANOL BLOOD < 10 mg/dL; HCG SCREEN NEGATIVE
[2020-09-24 02:27] LABS: CLARITY URINE TURBID (CLEAR); COLOR URINE YELLOW (YELLOW); KETONES URINE NEGATIVE (NEGATIVE); LEUKOCYTE ESTERASE URINE NEGATIVE (NEGATIVE); NITRITE URINE NEGATIVE (NEGATIVE); OCCULT BLOOD URINE NEGATIVE (NEGATIVE); PROTEIN URINE NEGATIVE (NEGATIVE); SPECIFIC GRAVITY URINE 1.025 (1.005-1.030); UROBILINOGEN URINE 0.2 E.U./dL (0.2-1.0)
[2020-09-24 02:36] LABS: *AMPHETAMINES SCREEN URINE NEGATIVE (NEGATIVE); *BARBITURATES SCREEN URINE NEGATIVE (NEGATIVE); *BENZODIAZEPINES SCREEN URINE NEGATIVE (NEGATIVE)
[2020-09-24 02:37] LABS: *COCAINE SCREEN URINE NEGATIVE (NEGATIVE); CANNABINOID URINE SCREEN NEGATIVE (NEGATIVE); METHADONE URINE SCREEN NEGATIVE (NEGATIVE); OPIATES URINE SCREEN NEGATIVE (NEGATIVE); PHENCYCLIDINE URINE SCREEN NEGATIVE (NEGATIVE)
== END 2020-09-24 03:54 | disposition left against medical advice (07) ==
LOC: ER 20:54
DX: L97.919 Non-pressure chronic ulcer of unspecified part of right lower leg with unspecified severity (principal); R45.851 Suicidal ideations; E11.9 Type 2 diabetes mellitus without complications; F20.9 Schizophrenia, unspecified; F31.9 Bipolar disorder, unspecified
CPT/HCPCS: 36415; 80053; 80305; 80307; 80320; 80329; 81003; 84703; 85025; 99283; G0480

== ENCOUNTER 2020-11-03 14:20 | Emergency (ER) | payer MEDICARE, MEDICAID ==
[~2020-11-03] VITALS: Ht 170.2 cm; Wt 97.5 kg
[2020-11-03] MEDS ORDERED: METFORMIN (14:24)
[2020-11-03] MEDS ORDERED: KEFLEX (14:24)
[2020-11-03] MEDS ORDERED: ACETAMINOPHEN 325MG TABLET PO STA (14:59)
[2020-11-03 15:30] VITALS: BP 134/77
[2020-11-03 15:51] LABS: BASOPHILS % 0.7 % (0.0-2.0); CHLORIDE 108 mEq/L (98-107); EOSINOPHILS % 1.7 % (0.0-5.0); HEMATOCRIT. 39.1 % (36.0-48.0); HEMOGLOBIN. 12.8 g/dL (12.0-16.0); LYMPHOCYTES % 30.3 % (20.0-50.0); MEAN CORPUSCULAR HEMOGLOBIN 25.8 pg (28.0-32.0); MEAN CORPUSCULAR VOLUME 78.6 fL (81.0-99.0); MEAN PLATELET VOLUME 7.9 fl (7.4-10.4); MONOCYTES % 4.8 % (2.0-8.0); NEUTROPHILS % 62.5 % (40.0-76.0); PLATELET 354 x1000/uL (130-400); RED BLOOD CELL COUNT 4.98 mill/uL (4.2-5.4); RED CELL DISTRIBUTION WIDTH 14.2 % (11.6-14.6)
[2020-11-03 15:58] LABS: HCG SCREEN NEGATIVE
[2020-11-03] MEDS ORDERED: DOXYCYCLINE HYCLATE 100MG CAPSULE PO ONE (16:15)
== END 2020-11-03 16:56 | disposition home or self-care (01) ==
LOC: ER 14:36
DX: L97.218 Non-pressure chronic ulcer of right calf with other specified severity (principal); E11.9 Type 2 diabetes mellitus without complications; F31.9 Bipolar disorder, unspecified; Z79.84 Long term (current) use of oral hypoglycemic drugs
CPT/HCPCS: 36415; 80053; 81025; 84703; 85025; 99283

== ENCOUNTER 2020-11-13 07:34 | Emergency (ER) | payer MEDICARE, MEDICAID ==
[~2020-11-13] VITALS: Ht 167.6 cm; Wt 100.0 kg
[~2020-11-13 07:34] MED LIST changes: +KEFLEX; +METFORMIN
[2020-11-13] MEDS ORDERED: HYDROCODONE/ACETAMINOPHEN 5/325MG TABLET PO STA (08:49)
[2020-11-13 09:09] LABS: CLARITY URINE CLEAR (CLEAR); COLOR URINE YELLOW (YELLOW); KETONES URINE NEGATIVE (NEGATIVE); LEUKOCYTE ESTERASE URINE TRACE (NEGATIVE); NITRITE URINE NEGATIVE (NEGATIVE); OCCULT BLOOD URINE NEGATIVE (NEGATIVE); PROTEIN URINE NEGATIVE (NEGATIVE); SPECIFIC GRAVITY URINE 1.027 (1.005-1.030); UROBILINOGEN URINE 0.2 E.U./dL (0.2-1.0)
[2020-11-13] MEDS ORDERED: KETOROLAC 30MG/ML VIAL IM ONE (09:15)
[2020-11-13 10:57] LABS: EOSINOPHILS % 1.5 % (0.0-5.0); HEMATOCRIT. 38.2 % (36.0-48.0); HEMOGLOBIN. 12.4 g/dL (12.0-16.0); MEAN CORPUSCULAR HEMOGLOBIN 25.6 pg (28.0-32.0); MEAN CORPUSCULAR VOLUME 79.1 fL (81.0-99.0); MEAN PLATELET VOLUME 7.9 fl (7.4-10.4); MONOCYTES % 7.3 % (2.0-8.0); NEUTROPHILS % 63.2 % (40.0-76.0); PLATELET 416 x1000/uL (130-400); RED BLOOD CELL COUNT 4.83 mill/uL (4.2-5.4)
[2020-11-13 11:04] LABS: CHLORIDE 108 mEq/L (98-107)
[2020-11-13 11:09] LABS: PROTHROMBIN TIME 10.3 sec (9.6-11.0)
[2020-11-13] MEDS ORDERED: QUETIAPINE FUMARATE 25MG TABLET PO SCH (11:30)
[2020-11-13] MEDS ORDERED: CEPHALEXIN 250MG CAPSULE PO ONE (11:30)
[2020-11-13] MEDS ORDERED: SULFAMETHOXAZOLE/TRIMETHOPRIM 400/80MG TAB PO ONE (11:30)
[2020-11-13] MEDS ORDERED: HYDROCODONE/ACETAMINOPHEN 5/325MG TABLET PO ONE (11:45)
[2020-11-13] MEDS ORDERED: ACETAMINOPHEN WITH CODEINE 120-12MG/5ML UDC PO ONE (12:15)
[2020-11-13 12:50] VITALS: BP 146/89
== END 2020-11-13 12:52 | disposition home or self-care (01) ==
LOC: ER 07:45
DX: S81.831A Puncture wound without foreign body, right lower leg, initial encounter (principal); X58.XXXA Exposure to other specified factors, initial encounter; Y93.89 Activity, other specified; Y92.89 Other specified places as the place of occurrence of the external cause; Y99.8 Other external cause status; L97.518 Non-pressure chronic ulcer of other part of right foot with other specified severity; F31.89 Other bipolar disorder; E11.9 Type 2 diabetes mellitus without complications; Z79.899 Other long term (current) drug therapy
CPT/HCPCS: 36415; 73590; 80053; 81003; 85025; 85610; 85651; 86140; 96372; 99284; J1885

== ENCOUNTER 2020-12-25 14:35 | Emergency (ER) | payer BC, MEDICAID ==
[~2020-12-25] VITALS: Ht 167.6 cm; Wt 112.0 kg
[2020-12-25 16:26] LABS: EOSINOPHILS % 2.6 % (0.0-5.0); HEMATOCRIT. 35.8 % (36.0-48.0); HEMOGLOBIN. 11.7 g/dL (12.0-16.0); LYMPHOCYTES % 28.7 % (20.0-50.0); MEAN CORPUSCULAR VOLUME 76.9 fL (81.0-99.0); MONOCYTES % 5.6 % (2.0-8.0); NEUTROPHILS % 62.1 % (40.0-76.0); PLATELET 304 x1000/uL (130-400); RED BLOOD CELL COUNT 4.66 mill/uL (4.2-5.4); RED CELL DISTRIBUTION WIDTH 15.9 % (11.6-14.6)
[2020-12-25 16:36] LABS: CHLORIDE 108 mEq/L (98-107)
[2020-12-25 16:39] LABS: ETHANOL BLOOD < 10 mg/dL
[2020-12-25 16:44] LABS: HCG SCREEN NEGATIVE
[2020-12-25 17:20] LABS: CLARITY URINE CLOUDY (CLEAR); COLOR URINE YELLOW (YELLOW); KETONES URINE TRACE (NEGATIVE); LEUKOCYTE ESTERASE URINE TRACE (NEGATIVE); NITRITE URINE NEGATIVE (NEGATIVE); OCCULT BLOOD URINE NEGATIVE (NEGATIVE); PH URINE 6.5 (4.5-8.0); PROTEIN URINE NEGATIVE (NEGATIVE); SPECIFIC GRAVITY URINE 1.026 (1.005-1.030)
[2020-12-25 17:38] LABS: *AMPHETAMINES SCREEN URINE NEGATIVE (NEGATIVE); *BARBITURATES SCREEN URINE NEGATIVE (NEGATIVE); *BENZODIAZEPINES SCREEN URINE NEGATIVE (NEGATIVE); *COCAINE SCREEN URINE NEGATIVE (NEGATIVE)
[2020-12-25 17:39] LABS: CANNABINOID URINE SCREEN NEGATIVE (NEGATIVE); METHADONE URINE SCREEN NEGATIVE (NEGATIVE); OPIATES URINE SCREEN NEGATIVE (NEGATIVE); PHENCYCLIDINE URINE SCREEN NEGATIVE (NEGATIVE)
[2020-12-25] MEDS ORDERED: IBUPROFEN 400MG TABLET PO ONE (18:30)
[2020-12-25] MEDS ORDERED: CEPH500T MT (18:56)
[2020-12-25] MEDS ORDERED: SULF1TAB48 MT (18:56)
[2020-12-25] MEDS ORDERED: METRONIDAZOLE 500MG TABLET PO ONE (19:00)
[2020-12-25] MEDS ORDERED: SULFAMETHOXAZOLE/TRIMETHOPRIM 800/160MG TABLET PO ONE (19:00)
[2020-12-25] MEDS ORDERED: CEFTRIAXONE SODIUM 1 G/VIAL IM ONE (19:00)
[2020-12-26] MEDS ORDERED: METR70GE17 VG (02:51)
[2020-12-26 05:49] VITALS: BP 125/81
== END 2020-12-26 05:52 | disposition home or self-care (01) ==
LOC: ER 15:23
DX: L97.829 Non-pressure chronic ulcer of other part of left lower leg with unspecified severity (principal); L03.115 Cellulitis of right lower limb; E11.9 Type 2 diabetes mellitus without complications; A59.8 Trichomoniasis of other sites; F32.9 Major depressive disorder, single episode, unspecified; R45.851 Suicidal ideations; N39.0 Urinary tract infection, site not specified
CPT/HCPCS: 36415; 80053; 80305; 80307; 80320; 80329; 81003; 84703; 85025; 96372; 99285; J0696; G0480

== ENCOUNTER 2020-12-31 16:07 | Emergency (ER) | payer BC, MEDICAID ==
[~2020-12-31] VITALS: Ht 165.1 cm; Wt 113.0 kg
[~2020-12-31 16:07] MED LIST changes: +CEPH500T MT; +METR70GE17 VG
[2020-12-31 16:10] VITALS: BP 158/95
[2020-12-31] MEDS ORDERED: MUPIROCIN 2% OINT 22GM TOP STA (16:29)
[2020-12-31] MEDS ORDERED: ACETAMINOPHEN 325MG TABLET PO ONE (16:30)
[2020-12-31] MEDS ORDERED: QUETIAPINE FUMARATE 50MG TABLET PO STA (16:40)
[2020-12-31] MEDS ORDERED: MUPI15CR11 TP (16:47)
[2020-12-31] MEDS ORDERED: QUET200T MT (16:47)
== END 2020-12-31 17:42 | disposition home or self-care (01) ==
LOC: ER 16:07
DX: E11.622 Type 2 diabetes mellitus with other skin ulcer (principal); L97.818 Non-pressure chronic ulcer of other part of right lower leg with other specified severity; F20.9 Schizophrenia, unspecified; Z79.84 Long term (current) use of oral hypoglycemic drugs
CPT/HCPCS: 99284

== ENCOUNTER 2021-01-09 22:45 | Emergency (ER) | payer BC, MEDICAID ==
[~2021-01-09] VITALS: Ht 162.6 cm; Wt 100.0 kg
[~2021-01-09 22:45] MED LIST changes: +MUPI15CR11 TP; +QUET200T MT
[2021-01-09] MEDS ORDERED: CLINDAMYCIN 600MG PREMIX 50 ML IV SCH (23:51)
[2021-01-10 00:22] LABS: CLARITY URINE CLEAR (CLEAR); COLOR URINE YELLOW (YELLOW); KETONES URINE TRACE (NEGATIVE); LEUKOCYTE ESTERASE URINE NEGATIVE (NEGATIVE); NITRITE URINE NEGATIVE (NEGATIVE); OCCULT BLOOD URINE NEGATIVE (NEGATIVE); PROTEIN URINE NEGATIVE (NEGATIVE); SPECIFIC GRAVITY URINE 1.034 (1.005-1.030)
[2021-01-10] MEDS ORDERED: HYDROCODONE/ACETAMINOPHEN 5/325MG TABLET PO NR (00:30)
[2021-01-10 00:46] LABS: BASOPHILS % 1.5 % (0.0-2.0); EOSINOPHILS % 2.5 % (0.0-5.0); HEMATOCRIT. 37.1 % (36.0-48.0); HEMOGLOBIN. 11.7 g/dL (12.0-16.0); LYMPHOCYTES % 38.7 % (20.0-50.0); MEAN CORPUSCULAR HEMOGLOBIN 24.4 pg (28.0-32.0); MEAN CORPUSCULAR VOLUME 77.7 fL (81.0-99.0); MEAN PLATELET VOLUME 8.3 fl (7.4-10.4); MONOCYTES % 6.7 % (2.0-8.0); NEUTROPHILS % 50.6 % (40.0-76.0); PLATELET 322 x1000/uL (130-400); RED BLOOD CELL COUNT 4.78 mill/uL (4.2-5.4); RED CELL DISTRIBUTION WIDTH 16.9 % (11.6-14.6)
[2021-01-10 00:51] LABS: CHLORIDE 107 mEq/L (98-107)
[2021-01-10 01:15] LABS: B-HCG QUANTITATIVE 1491 mIU/mL (<3)
[2021-01-10 02:49] LABS: PROTHROMBIN TIME 10.3 sec (9.6-11.0)
[2021-01-10] MEDS ORDERED: MORPHINE SULFATE 2 MG/ML CPJ (NOT FOR IM USE) IV ONE (03:15)
[2021-01-10] MEDS ORDERED: PRENATAL VIT/FE FUMARATE/FA TABLET PO SCH (03:15)
[2021-01-10 07:35] VITALS: BP 126/78
== END 2021-01-10 08:19 | disposition left against medical advice (07) ==
LOC: ER 22:45 → CANBEDREQ 01-10 08:22
DX: L03.115 Cellulitis of right lower limb (principal); E11.9 Type 2 diabetes mellitus without complications; F20.9 Schizophrenia, unspecified; F17.200 Nicotine dependence, unspecified, uncomplicated; Z89.511 Acquired absence of right leg below knee
CPT/HCPCS: 36415; 80053; 81003; 81025; 83036; 83605; 84145; 84484; 84702; 85025; 85610; 86140; 87040; 87086; 93005; 96365; 96375; 99285; J2270; J3490

== ENCOUNTER 2021-01-14 15:27 | Emergency (ER) | payer BC, MEDICAID ==
[~2021-01-14] VITALS: Ht 172.7 cm; Wt 127.0 kg
[2021-01-14] MEDS ORDERED: ACETAMINOPHEN 325MG TABLET PO ONE (17:45)
[2021-01-14] MEDS ORDERED: CEPHALEXIN 250MG CAPSULE PO ONE (19:15)
[2021-01-14] MEDS ORDERED: CEPH500T MT (22:09)
[2021-01-15 00:33] VITALS: BP 133/76
== END 2021-01-15 07:15 | disposition home or self-care (01) ==
LOC: ER 15:27
DX: L03.115 Cellulitis of right lower limb (principal); F31.9 Bipolar disorder, unspecified; F20.9 Schizophrenia, unspecified; E11.9 Type 2 diabetes mellitus without complications; Z59.0 Homelessness; Z79.84 Long term (current) use of oral hypoglycemic drugs
CPT/HCPCS: 99285

== ENCOUNTER 2021-02-13 22:37 | Inpatient (IN) | payer BC, MEDICAID ==
[~2021-02-13] VITALS: Ht 172.7 cm; Wt 122.5 kg
[2021-02-13] MEDS ORDERED: PIPERACILLIN/TAZ 3.375G PREMIX 50 ML IV ONE (23:15)
[2021-02-13] MEDS ORDERED: VANCOMYCIN 1 G PREMIX 200 ML IV ONE (23:15)
[2021-02-13 23:41] LABS: BASOPHILS % 0.7 % (0.0-2.0); EOSINOPHILS % 2.2 % (0.0-5.0); HEMATOCRIT. 36.7 % (36.0-48.0); LYMPHOCYTES % 36.6 % (20.0-50.0); MEAN CORPUSCULAR HEMOGLOBIN 26.3 pg (28.0-32.0); MEAN CORPUSCULAR VOLUME 80.3 fL (81.0-99.0); MEAN PLATELET VOLUME 8.2 fl (7.4-10.4); MONOCYTES % 6.6 % (2.0-8.0); NEUTROPHILS % 53.9 % (40.0-76.0); PLATELET 292 x1000/uL (130-400); RED BLOOD CELL COUNT 4.57 mill/uL (4.2-5.4)
[2021-02-13 23:58] LABS: CHLORIDE 108 mEq/L (98-107)
[2021-02-14 03:00] VITALS: BP 129/66
[2021-02-14 03:30] VITALS: BP 129/66
[2021-02-14] MEDS ORDERED: HYDROCODONE/ACETAMINOPHEN 5/325MG TABLET PO PRN (03:30)
[2021-02-14] MEDS ORDERED: CEFTRIAXONE 1 G PREMIX 50 ML IV SCH (03:30)
[2021-02-14] MEDS ORDERED: DEXT 5%/0.45% NACL 1000ML 1,000 ML IV SCH (04:30)
[2021-02-14] MEDS ORDERED: QUET200T PO (06:18)
[2021-02-14] MEDS ORDERED: CEFTRIAXONE 1,000 MG in DEXTROSE 5% WATER 50 ML IV SCH (08:00)
[2021-02-14] MEDS ORDERED: QUETIAPINE FUMARATE 50MG TABLET PO SCH (09:00)
[2021-02-14] MEDS ORDERED: VANCOMYCIN 1250MG in DEXTROSE 5% WATER 250ML IV SCH (09:00)
[2021-02-14] MEDS ORDERED: VANCOMYCIN 1 G PREMIX 200 ML IV SCH (22:00)
== END 2021-02-14 07:40 | disposition left against medical advice (07) | DRG 638 ==
LOC: ER 22:37 → 6EST 02-14 01:23 → EDBEDREQ 02-14 01:27 → ENRESERV 02-14 01:47 → 6EST 02-14 03:45
PROVIDERS: ADMIT Internal Medicine; ATTEND Internal Medicine
DX: E11.622 Type 2 diabetes mellitus with other skin ulcer (principal); L97.919 Non-pressure chronic ulcer of unspecified part of right lower leg with unspecified severity; R44.0 Auditory hallucinations; F31.9 Bipolar disorder, unspecified; F20.9 Schizophrenia, unspecified; Z79.2 Long term (current) use of antibiotics; Z79.899 Other long term (current) drug therapy
CPT/HCPCS: 36415; 80053; 83605; 84145; 85025; 86850; 86900; 93005; 99285; J0696; J2543; J3370; J7060

== ENCOUNTER 2021-06-02 12:51 | Emergency (ER) | payer BC, MEDICAID ==
[~2021-06-02] VITALS: Ht 165.1 cm; Wt 121.0 kg
[~2021-06-02 12:51] MED LIST changes: +QUET200T PO
[2021-06-02] MEDS ORDERED: IBUPROFEN 600MG TABLET PO ONE (13:30)
[2021-06-02] MEDS ORDERED: ACET-2708 MT (14:35)
[2021-06-02] MEDS ORDERED: AMOX-494 MT (14:35)
[2021-06-02] MEDS ORDERED: AMOXICILLIN 500 MG CAPSULE PO ONE (14:45)
[2021-06-02] MEDS ORDERED: ACETAMINOPHEN 325MG TABLET PO ONE (14:45)
[2021-06-02 14:51] VITALS: BP 120/62
== END 2021-06-02 14:52 | disposition home or self-care (01) ==
LOC: ER 12:51
DX: S81.801A Unspecified open wound, right lower leg, initial encounter (principal); F31.9 Bipolar disorder, unspecified; E11.9 Type 2 diabetes mellitus without complications; X58.XXXA Exposure to other specified factors, initial encounter; Y93.89 Activity, other specified; Y92.89 Other specified places as the place of occurrence of the external cause; Y99.8 Other external cause status; Z79.899 Other long term (current) drug therapy
CPT/HCPCS: 81025; 99283

== ENCOUNTER 2021-07-23 00:27 | Emergency (ER) | payer BC, MEDICAID ==
[~2021-07-23] VITALS: Ht 167.6 cm; Wt 113.0 kg
[~2021-07-23 00:27] MED LIST changes: +ACET-2708 MT; +AMOX-494 MT; +IBUP-2778 PO; -IBUP-516 PO; -QUET400T11 MT; +QUET400T12 MT
[2021-07-23 06:00] VITALS: BP 120/48
[2021-07-23 06:03] LABS: CHLORIDE 108 mEq/L (98-107)
[2021-07-23 06:08] LABS: BASOPHILS % 0.7 % (0.0-2.0); EOSINOPHILS % 7.2 % (0.0-5.0); HEMOGLOBIN. 11.2 g/dL (12.0-16.0); LYMPHOCYTES % 29.4 % (20.0-50.0); MEAN PLATELET VOLUME 8.5 fl (7.4-10.4); MONOCYTES % 6.1 % (2.0-8.0); NEUTROPHILS % 56.6 % (40.0-76.0); PLATELET 300 x1000/uL (130-400); RED BLOOD CELL COUNT 4.15 mill/uL (4.2-5.4); RED CELL DISTRIBUTION WIDTH 14.1 % (11.6-14.6)
[2021-07-23 06:10] LABS: ETHANOL BLOOD < 10 mg/dL
[2021-07-23 06:34] LABS: CLARITY URINE CLOUDY (CLEAR); KETONES URINE 4+ (NEGATIVE); LEUKOCYTE ESTERASE URINE 1+ (NEGATIVE); NITRITE URINE NEGATIVE (NEGATIVE); OCCULT BLOOD URINE NEGATIVE (NEGATIVE); PROTEIN URINE 1+ (NEGATIVE); SPECIFIC GRAVITY URINE 1.035 (1.005-1.030)
[2021-07-23] MEDS ORDERED: ACETAMINOPHEN 325MG TABLET PO ONE (06:45)
[2021-07-23 06:51] LABS: CANNABINOID URINE SCREEN NEGATIVE (NEGATIVE); METHADONE URINE SCREEN NEGATIVE (NEGATIVE); PHENCYCLIDINE URINE SCREEN NEGATIVE (NEGATIVE)
[2021-07-23 06:52] LABS: *AMPHETAMINES SCREEN URINE NEGATIVE (NEGATIVE); *BARBITURATES SCREEN URINE NEGATIVE (NEGATIVE); *BENZODIAZEPINES SCREEN URINE NEGATIVE (NEGATIVE); *COCAINE SCREEN URINE NEGATIVE (NEGATIVE)
[2021-07-23 06:53] LABS: OPIATES URINE SCREEN NEGATIVE (NEGATIVE)
[2021-07-23 07:05] LABS: COLOR URINE YELLOW (YELLOW)
== END 2021-07-23 08:57 | disposition left against medical advice (07) ==
LOC: ER 00:27
DX: O26.93 Pregnancy related conditions, unspecified, third trimester (principal); Z04.6 Encounter for general psychiatric examination, requested by authority; Z3A.32 32 weeks gestation of pregnancy
CPT/HCPCS: 36415; 80053; 80305; 80307; 80320; 80329; 81003; 81025; 84702; 85025; 99283; G0480

== ENCOUNTER 2021-09-16 19:45 | Emergency (ER) | payer BC, MEDICAID ==
[~2021-09-16] VITALS: Ht 167.6 cm; Wt 121.0 kg
[2021-09-16] MEDS ORDERED: ONDANSETRON HCL 4MG/2ML INJ IV ONE (23:00)
[2021-09-16] MEDS ORDERED: MORPHINE SULFATE 4 MG/ML CPJ (NOT FOR IM USE) IV ONE (23:00)
[2021-09-16] MEDS ORDERED: SODIUM CHLORIDE 0.9% 1,000 ML IV ONE (23:00)
[2021-09-17 00:50] LABS: BASOPHILS % 1.1 % (0.0-2.0); EOSINOPHILS % 4.6 % (0.0-5.0); HEMATOCRIT. 36.8 % (36.0-48.0); LYMPHOCYTES % 31.8 % (20.0-50.0); MEAN CORPUSCULAR HEMOGLOBIN 26.3 pg (28.0-32.0); MEAN CORPUSCULAR VOLUME 80.7 fL (81.0-99.0); MEAN PLATELET VOLUME 7.6 fl (7.4-10.4); NEUTROPHILS % 56.5 % (40.0-76.0); PLATELET 428 x1000/uL (130-400); RED BLOOD CELL COUNT 4.56 mill/uL (4.2-5.4); RED CELL DISTRIBUTION WIDTH 14.7 % (11.6-14.6)
[2021-09-17 00:59] LABS: CHLORIDE 110 mEq/L (98-107); HCG SCREEN NEGATIVE
[2021-09-17 04:00] VITALS: BP 148/68
[2021-09-17] MEDS ORDERED: IBUP-2029 MT (04:35)
[2021-09-17] MEDS ORDERED: SULF1TAB48 MT (04:35)
== END 2021-09-17 05:14 | disposition home or self-care (01) ==
LOC: ER 19:45
DX: S81.801A Unspecified open wound, right lower leg, initial encounter (principal); X58.XXXA Exposure to other specified factors, initial encounter; Y93.89 Activity, other specified; Y92.89 Other specified places as the place of occurrence of the external cause; Y99.8 Other external cause status; F31.9 Bipolar disorder, unspecified; E11.9 Type 2 diabetes mellitus without complications; F20.9 Schizophrenia, unspecified
CPT/HCPCS: 36415; 80053; 83605; 84703; 85025; 99283; J7030

== ENCOUNTER 2022-02-19 11:46 | Emergency (ER) | payer BC, MEDICAID ==
[~2022-02-19] VITALS: Ht 172.7 cm; Wt 113.0 kg
[~2022-02-19 11:46] MED LIST changes: +IBUP-2029 MT
[2022-02-19] MEDS ORDERED: KETOROLAC 60MG/2ML VIAL IM ONE (12:45)
[2022-02-19 12:56] VITALS: BP 121/86
[2022-02-19] MEDS ORDERED: TRAM50TA3 MT ×3 (13:09→13:38)
[2022-02-19] MEDS ORDERED: CEPH500T MT (13:09)
[2022-02-19] MEDS ORDERED: SULF1TAB48 MT (13:09)
[2022-02-19] MEDS ORDERED: QUET400T MT (13:09)
[2022-02-19] MEDS ORDERED: QUETIAPINE FUMARATE 50MG TABLET PO SCH (13:15)
== END 2022-02-19 13:50 | disposition home or self-care (01) ==
LOC: ER 11:46
DX: L97.911 Non-pressure chronic ulcer of unspecified part of right lower leg limited to breakdown of skin (principal); F20.9 Schizophrenia, unspecified; F31.9 Bipolar disorder, unspecified; E11.9 Type 2 diabetes mellitus without complications
CPT/HCPCS: 96372; 99283; J1885

== ENCOUNTER 2022-07-02 02:29 | Emergency (ER) | payer BC, MEDICAID ==
[~2022-07-02] VITALS: Ht 172.7 cm; Wt 105.0 kg
[~2022-07-02 02:29] MED LIST changes: +QUET400T MT; +TRAM50TA3 MT
[2022-07-02 02:45] VITALS: BP 152/89
[2022-07-02] MEDS ORDERED: ACETAMINOPHEN 500MG TABLET PO ONE (02:45)
== END 2022-07-02 03:28 | disposition home or self-care (01) ==
LOC: ER 02:41
DX: R44.0 Auditory hallucinations (principal); S81.801A Unspecified open wound, right lower leg, initial encounter; E11.9 Type 2 diabetes mellitus without complications; F31.9 Bipolar disorder, unspecified; X58.XXXA Exposure to other specified factors, initial encounter; Y93.9 Activity, unspecified; Y92.9 Unspecified place or not applicable; Z98.890 Other specified postprocedural states
CPT/HCPCS: 99283

== ENCOUNTER 2022-07-15 00:24 | Emergency (ER) | payer BC, MEDICAID ==
[~2022-07-15] VITALS: Ht 170.2 cm; Wt 100.0 kg
[2022-07-15 00:26] VITALS: BP 158/84
== END 2022-07-15 01:35 | disposition left against medical advice (07) ==
LOC: ER 00:33
DX: Z53.21 Procedure and treatment not carried out due to patient leaving prior to being seen by health care provider (principal)

== ENCOUNTER 2022-11-30 09:44 | Emergency (ER) | payer BC, MEDICAID ==
[~2022-11-30] VITALS: Ht 162.6 cm; Wt 109.0 kg
[2022-11-30 09:46] VITALS: BP 158/90
== END 2022-11-30 14:57 | disposition left against medical advice (07) ==
LOC: ER 09:51
DX: M79.669 Pain in unspecified lower leg (principal); F31.9 Bipolar disorder, unspecified; E11.9 Type 2 diabetes mellitus without complications; F20.9 Schizophrenia, unspecified; Z98.890 Other specified postprocedural states; Z79.899 Other long term (current) drug therapy
CPT/HCPCS: 93005; 99283

== ENCOUNTER 2025-01-05 13:33 | Emergency (ER) | payer BC, MEDICAID ==
[~2025-01-05] VITALS: Ht 162.6 cm; Wt 120.0 kg
[2025-01-05 13:36] VITALS: TEMP 36.9; O2SAT 100
[2025-01-05 15:26] VITALS: BP 152/81; PULSE 115; RESP 16
[2025-01-05] MEDS: ONDANSETRON HCL 4MG/2ML INJ IV STA (15:26)
[2025-01-05] MEDS: KETOROLAC 30MG/ML VIAL IV STA (15:26)
[2025-01-05] MEDS: SODIUM CHLORIDE 0.9% 1,000 ML IV ONE (15:26)
[2025-01-05] MEDS: LORAZEPAM 2MG/ML INJ IV STA (16:29)
[2025-01-05 16:35] LABS: CHLORIDE 100 mEq/L (98-107); POTASSIUM 3.9 mEq/L (3.5-5.1); SODIUM 134 mEq/L (136-145)
[2025-01-05 16:36] LABS: CALCIUM 9.1 mg/dL (8.7-10.4); CARBON DIOXIDE 22 mEq/L (21-32); HCG SCREEN NEGATIVE
[2025-01-05 16:38] LABS: PROTHROMBIN TIME 11.1 sec (9.6-11.0)
[2025-01-05 16:41] LABS: CREATININE 0.8 mg/dL (0.6-1.0); GLUCOSE 110 mg/dL (70-105); UREA NITROGEN BLOOD 6 mg/dL (9-23)
[2025-01-05 16:42] LABS: TROPONIN I HIGH SENSITIVITY 7 ng/L (3.0-34)
[2025-01-05 16:44] LABS: HEMATOCRIT. 41.2 % (36.0-48.0); HEMOGLOBIN. 12.8 g/dL (12.0-16.0); MEAN CORPUSCULAR HEMOGLOBIN 26.8 pg (28.0-32.0); MEAN CORPUSCULAR HGB CONC 31.1 g/dL (31.0-37.0); MEAN CORPUSCULAR VOLUME 86.2 fL (81.0-99.0); RED BLOOD CELL COUNT 4.78 mill/uL (4.2-5.4); RED CELL DISTRIBUTION WIDTH 14.8 % (11.6-14.6)
[2025-01-05 17:01] LABS: DIFFERENTIAL COMMENT 1
[2025-01-05] MEDS ORDERED: ONDA-239 PO (17:03)
[2025-01-05 17:23] LABS: PLATELET ESTIMATE NORMAL
[2025-01-05 17:24] LABS: PLATELET 222 x1000/uL (130-400)
== END 2025-01-05 17:44 | disposition home or self-care (01) ==
LOC: ER 13:33
DX: R07.89 Other chest pain (principal); R44.0 Auditory hallucinations; E11.9 Type 2 diabetes mellitus without complications; Z79.899 Other long term (current) drug therapy
CPT/HCPCS: 99284; 96374; 96375; 71045; 96361; 80048; 84703; 85025; 85610; 84484; 36415; J1885; J2060; J2405; J7030